=== PATIENT | male | born 1955 | race Caucasian/White ===

== ENCOUNTER 2024-09-06 15:52 | Inpatient (IN) | payer MEDICAID, MEDICARE ==
[2024-09-06 19:21] LABS: BASOPHILS ABSOLUTE AUTO 0.03 K/uL (0.00-0.10); BASOPHILS PERCENT AUTO 0.4 % (0.1-1.3); EOSINOPHILS PERCENT AUTO 0.2 % (0.0-5.4); HEMATOCRIT 38.7 % (38.4-49.7); HEMOGLOBIN 13.2 g/dL (12.9-16.9); IMMATURE GRAN ABSOLUTE AUTO 0.06 K/uL (0.00-0.23); IMMATURE GRAN PERCENT AUTO 0.7 % (0.0-0.7); LYMPHOCYTES ABSOLUTE AUTO 1.41 K/uL (0.8-3.3); LYMPHOCYTES PERCENT AUTO 17.6 % (11.4-47.7); MEAN CORPUSCULAR HEMOGLOBIN 30.6 pg (31.6-35.5); MEAN CORPUSCULAR HGB CONC 34.1 g/dL (31.6-35.5); MEAN CORPUSCULAR VOLUME 89.8 fL (81.4-99.0); MONOCYTES ABSOLUTE AUTO 1.15 K/uL (0.20-0.90); MONOCYTES PERCENT AUTO 14.4 % (3.3-12.6); NEUTROPHILS ABSOLUTE AUTO 5.34 K/uL (1.0-7.6); NEUTROPHILS PERCENT AUTO 66.7 % (40.0-78.1); PLATELET COUNT,PLT 298 K/uL (130-375); RED BLOOD CELL COUNT 4.31 M/uL (4.14-5.76)
[2024-09-06 19:24] LABS: EOSINOPHILS ABSOLUTE AUTO 0.02 K/uL (0.00-0.40)
[2024-09-06 19:53] LABS: ALANINE AMINOTRANSFERASE,ALT 37 U/L (12-78); ALBUMIN 3.5 g/dL (3.4-5.0); ALKALINE PHOSPHATASE 104 U/L (46-116); ANION GAP 13.5 mmol/L (5.0-14.0); ASPARTATE AMNIOTRANSFERASE,AST 31 U/L (15-37); BLOOD UREA NITROGEN,BUN 11 mg/dL (7-18); CARBON DIOXIDE,CO2 26 mmol/L (21-32); CHLORIDE,CL 102 mmol/L (100-108); CREATININE 0.9 mg/dL (0.8-1.3); EST CRCL DRUG DOSING (CG) 58.97 mL/min; ESTIMATED GFR 93 mL/min (>60); GLUCOSE RANDOM 102 mg/dL (74-106); POTASSIUM,K 3.5 mmol/L (3.6-5.2); PROTEIN TOTAL,TP 7.2 g/dL (6.4-8.2); SODIUM,NA 138 mmol/L (140-148); TROPONIN I HIGH SENSITIVITY 18.6 pg/mL (<=60.3); TSH ULTRASENSITIVE 2.463 uIU/mL (0.358-3.740)
[2024-09-06] MEDS: Iopamidol 755 Mg/ML 100 ML Bottle IV SCH (21:12)
[2024-09-06] MEDS: Sodium Chloride 0.9% 60 ML IV SCH (21:12)
[2024-09-06 22:52] LABS: APPEARANCE,URINE CLEAR (CLEAR); BILIRUBIN,URINE NEGATIVE (NEGATIVE); COLOR,URINE YELLOW (YELLOW); GLUCOSE,URINE NEGATIVE (NEGATIVE); KETONES,URINE NEGATIVE (NEGATIVE); LEUKOCYTE ESTERASE,URINE NEGATIVE (NEGATIVE); NITRITE,URINE NEGATIVE (NEGATIVE); OCCULT BLOOD,URINE TRACE-INTACT (NEGATIVE); PROTEIN,URINE NEGATIVE (NEGATIVE)
[2024-09-06 22:59] LABS: AMORPHOUS SEDIMENT,URINE NOT SEEN; AMPHETAMINES SCREEN, URINE NEGATIVE (NEGATIVE); BACTERIA,URINE FEW; BARBITURATE SCREEN,URINE NEGATIVE (NEGATIVE); BENZODIAZEPINES SCREEN,URINE NEGATIVE (NEGATIVE); EPITHELIAL CELLS,URINE NOT SEEN; METHADONE SCREEN, URINE NEGATIVE (NEGATIVE); METHAMPHETAMINES SCREEN, URINE NEGATIVE (NEGATIVE); MUCUS,URINE NOT SEEN; OXYCODONE SCREEN,URINE NEGATIVE (NEGATIVE); PROPOXYPHENE SCREEN,URINE NEGATIVE (NEGATIVE); THC SCREEN,URINE 50 NG/ML NEGATIVE (NEGATIVE); WBC,URINE 0-5 (0-5)
[2024-09-06] MEDS: Clopidogrel 75 MG Tab PO SCH (23:07)
[2024-09-06] MEDS: Aspirin 81 MG Tab.EC PO SCH (23:07)
[2024-09-06] MEDS ORDERED: Ondansetron 4 MG/2 ML SDV IV PRN (23:52)
[2024-09-06] MEDS ORDERED: Ondansetron 4 MG Tab.DIS PO PRN (23:52)
[2024-09-06] MEDS ORDERED: Acetaminophen 325 MG Tab PO PRN (23:52)
[2024-09-07 04:58] LABS: HEMATOCRIT 36.4 % (38.4-49.7); HEMOGLOBIN 12.2 g/dL (12.9-16.9); MEAN CORPUSCULAR HGB CONC 33.5 g/dL (31.6-35.5); MEAN CORPUSCULAR VOLUME 89.7 fL (81.4-99.0); RED BLOOD CELL COUNT 4.06 M/uL (4.14-5.76); WHITE BLOOD CELL COUNT,WBC 7.3 K/uL (3.2-11.0)
[2024-09-07 05:14] LABS: ANION GAP 7.7 mmol/L (5.0-14.0); CALCIUM 8.8 mg/dL (8.5-10.1); CREATININE 0.8 mg/dL (0.8-1.3); EST CRCL DRUG DOSING (CG) 71.25 mL/min; POTASSIUM,K 3.9 mmol/L (3.6-5.2)
[2024-09-07 08:22] LABS: CHOLESTEROL HDL 33 mg/dL (40-60); CHOLESTEROL LDL DIRECT 95 mg/dL (0-100); CHOLESTEROL TOTAL 141 mg/dL (0-200); TRIGLYCERIDES 81 mg/dL (15-150)
[2024-09-07] MEDS ORDERED: Sodium Chloride 0.9% 10 ML Syringe IV PRN (10:11)
[2024-09-07] MEDS: atorvaSTATin 20 MG Tab PO SCH (20:21)
[2024-09-07] MEDS: Melatonin 3 MG Tab PO PRN (21:45)
[2024-09-08] MEDS: atorvaSTATin 20 MG Tab PO SCH (20:36)
[2024-09-09] MEDS: Sennosides/Docusate Sodium 50-8.6 MG Tab PO PRN (09:06)
[2024-09-10 05:37] LABS: HEMATOCRIT 38.3 % (38.4-49.7); HEMOGLOBIN 12.8 g/dL (12.9-16.9); MEAN CORPUSCULAR HEMOGLOBIN 30.4 pg (31.6-35.5); MEAN CORPUSCULAR HGB CONC 33.4 g/dL (31.6-35.5); RED BLOOD CELL COUNT 4.21 M/uL (4.14-5.76)
== END 2024-09-10 10:51 | DRG 66 ==
LOC: JP.ED 15:52 → JP.MS 23:03 → OBSVTOIN 09-07 10:42
PROVIDERS: ADMIT Registered Nurse; ATTEND Internal Medicine
DX: I63.521 Cerebral infarction due to unspecified occlusion or stenosis of right anterior cerebral artery (principal); I70.90 Unspecified atherosclerosis; R29.6 Repeated falls; Z75.8 Other problems related to medical facilities and other health care; Z79.899 Other long term (current) drug therapy; H54.7 Unspecified visual loss; M17.0 Bilateral primary osteoarthritis of knee; Z87.891 Personal history of nicotine dependence; Z98.49 Cataract extraction status, unspecified eye
CPT/HCPCS: 36415 ×2; 70450; 70496; 70498; 71046 ×2; 73502 ×2; 73610 ×2; 80048; 80053; 80061; 80305; 80307; 81001; 82140; 83605; 83690; 84443; 84484; 85025; 85027; 93005; 93010; 99285 ×2; A9270 ×4; J3490; Q9967; 70551; 70551-26; 97110-GP; 97116-GP; 97162-GP; 97166-GO; G0378